=== PATIENT | female | born 1980 | race Native Hawaiian/Other Pacific Islander ===

== ENCOUNTER 2018-02-21 07:29 | Day surgery (SDC) | payer OTHER ==
[2018-02-21] MEDS ORDERED: Sodium Chloride 0.9% 1,000 ML IV ONE (07:48)
[2018-02-21] MEDS ORDERED: Sodium Chloride 0.9% 1,000 ML ONE (08:03)
--- NOTE | 2018-02-21 08:16 | C.PDOC ---
History Of Present Illness 37 year old female presents to the ED sent by Dr. Garcia for D&C procedure for possible miscarriage. Reports she is currently 11 weeks . Complains of minor spotting when she wipes, but denies any abdominal pain, n/v/d, fever, chills. Time Seen by Provider: 02/21/18 07:31 Chief Complaint (Nursing): Female Genitourinary History Per: Patient History/Exam Limitations: no limitations Onset/Duration Of Symptoms: Days Current Symptoms Are (Timing): Still Present Quality Of Discomfort: Cramping Abnormal Vaginal Bleeding: Yes Last Menstral Period: 11/30/2017 : 1 Past Medical History Reviewed: Historical Data, Nursing Documentation, Vital Signs Vital Signs: Last Vital Signs Temp 98 F 02/21/18 07:36 Pulse 73 02/21/18 07:36 Resp 18 02/21/18 07:36 BP 120/76 02/21/18 07:36 Pulse Ox 100 02/21/18 07:36 - Medical History PMH: No Chronic Diseases Surgical History: No Surg Hx Family History: States: No Known Family Hx - Social History Hx Alcohol Use: No Hx Substance Use: No - Immunization History Hx Tetanus Toxoid Vaccination: No Hx Influenza Vaccination: No Hx Pneumococcal Vaccination: No Review Of Systems Except As Marked, All Systems Reviewed And Found Negative. Constitutional: Negative for: Fever, Chills Gastrointestinal: Negative for: Nausea, Vomiting, Abdominal Pain, Diarrhea Genitourinary: Positive for: Vaginal Bleeding (spotting). Negative for: Dysuria, Hematuria Physical Exam - Physical Exam Appears: Non-toxic, No Acute Distress Skin: Warm, Dry, No Rash Head: Atraumatic, Normacephalic Eye(s): bilateral: Normal Inspection Oral Mucosa: Moist Neck: Normal ROM, Supple Chest: Symmetrical Respiratory: Normal Breath Sounds Gastrointestinal/Abdominal: Soft, No Tenderness Extremity: Normal ROM Neurological/Psych: Oriented x3, Normal Speech Gait: Steady ED Course And Treatment - Laboratory Results Result Diagrams: 02/21/18 08:17 02/21/18 08:17 Lab Interpretation: Normal Urine POC: Positive O2 Sat by Pulse Oximetry: 100 (RA) Pulse Ox Interpretation: Normal Progress Note: Treated with IVF NSS. 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 - Scribe Statement The provider has reviewed the documentation as recorded by the Scribe Sharmin Pedro All medical record entries made by the Raciel were at my direction and personally dictated by me. I have reviewed the chart and agree that the record accurately reflects my personal performance of the history, physical exam, medical decision making, and the department course for this patient. I have also personally directed, reviewed, and agree with the discharge instructions and disposition. Decision To Admit - Pt Status Changed To: Hospital Disposition Of: SDS- Endo,OR,Cath,IR - . Bed Request Type: Same Day Surgery Admitting Physician: Danyel Garcia Patient Diagnosis: Miscarriage
[2018-02-21 08:22] LABS: BASO # 0.1 K/uL (0.0-0.2); BASO % 0.9 % (0.0-2.0); EOS # 0.1 K/uL (0.0-0.7); EOS % 1.4 % (0.0-4.0); LYMPH # 2.6 K/uL (1.0-4.3); LYMPH % 31.6 % (20.0-40.0); MEAN CELL VOLUME 88.9 fL (81.0-99.0); MEAN CORPUSCULAR HEMOGLOBIN 30.2 pg (27.0-31.0); MEAN PLATELET VOLUME 7.4 fL (7.2-11.7); MONO # 0.5 K/uL (0.0-0.8); MONO % 6.4 % (0.0-10.0); NEUT % 59.7 % (50.0-75.0); RBC 4.3 Mil/uL (3.80-5.20); RED CELL DISTRIBUTION WIDTH 14.6 % (11.5-14.5); WHITE BLOOD COUNT 8.4 K/uL (4.8-10.8)
[2018-02-21 08:27] LABS: PROTHROMBIN TIME 11.3 SECONDS (9.7-12.2); SQUAMOUS EPITHIAL 10 /hpf (0-5); URINE BACTERIA FEW (<OCC); URINE BILIRUBIN NEGATIVE (NEGATIVE); URINE BLOOD 2+ (NEGATIVE); URINE CLARITY Hazy (Clear); URINE COLOR Yellow (YELLOW); URINE GLUCOSE (UA) NORMAL (Normal); URINE LEUKOCYTE ESTERASE TRACE Leu/uL (Negative); URINE PROTEIN NEGATIVE (NEGATIVE); URINE UROBILINOGEN NORMAL mg/dL (0.2-1.0)
--- NOTE | 2018-02-21 08:27 | CP.PCM.HP ---
History of Present Illness - History of Present Illness History of Present Illness: 37 y/o female at 11 weeks presents to ED for scheduled D&S by Dr Garcia. Vaginal U/S was done 3 days ago during visit and absent heart sound was found indicating demise. Patient experienced minimal va ginal spotting for one day. Patient denied associated symptoms of abd pain, N/V/D, fever, chills. Patient denied chest pain, palpitations, cough, headache, dysurea, PMH: PCOS PSH: denied FH: non contributory MEDS: PNV ALL: NKDA Present on Admission - Present on Admission Any Indicators Present on Admission: No Past Patient History - Infectious Disease Hx of Infectious Diseases: None - Past Social History Smoking Status: Never Smoked - GENITOURINARY/GYNECOLOGICAL Other/Comment: ovarian cysts - PSYCHIATRIC Hx Substance Use: No - ANESTHESIA Hx Anesthesia: No Meds Allergies/Adverse Reactions: Allergies Allergy/AdvReac Type Severity Reaction Status Date / Time No Known Allergies Allergy Verified 02/21/18 07:39 Physical Exam - Constitutional Appears: Well - Head Exam Head Exam: ATRAUMATIC, NORMAL INSPECTION, NORMOCEPHALIC - Eye Exam Eye Exam: EOMI, Normal appearance, PERRL Pupil Exam: NORMAL ACCOMODATION, PERRL - ENT Exam ENT Exam: Mucous Membranes Moist, Normal Exam - Neck Exam Neck exam: Positive for: Normal Inspection - Respiratory Exam Respiratory Exam: Clear to Auscultation Bilateral, NORMAL BREATHING PATTERN - Cardiovascular Exam Cardiovascular Exam: REGULAR RHYTHM - GI/Abdominal Exam GI & Abdominal Exam: Normal Bowel Sounds, Soft. absent: Tenderness - Extremities Exam Extremities exam: Positive for: normal inspection - Back Exam Back exam: NORMAL INSPECTION. absent: CVA tenderness (L), CVA tenderness (R) - Neurological Exam Neurological exam: Alert, CN II-XII Intact, Normal Gait, Oriented x3, Reflexes Normal - Psychiatric Exam Psychiatric exam: Normal Affect, Normal Mood - Skin Skin Exam: Dry, Intact, Normal Color, Warm Results - Vital Signs Recent Vital Signs: Last Vital Signs Temp 98 F 02/21/18 07:36 Pulse 73 02/21/18 07:36 Resp 18 02/21/18 07:36 BP 120/76 02/21/18 07:36 Pulse Ox 100 02/21/18 08:18 - Labs Result Diagrams: 02/21/18 08:17 02/21/18 08:17 Labs: Laboratory Results - last 24 hr 02/21/18 08:17 WBC 8.4 RBC 4.30 Hgb 13.0 Hct 38.2 MCV 88.9 MCH 30.2 MCHC 34.0 RDW 14.6 H Plt Count 354 MPV 7.4 Neut % (Auto) 59.7 Lymph % (Auto) 31.6 Robeson % (Auto) 6.4 Eos % (Auto) 1.4 Baso % (Auto) 0.9 Neut # (Auto) 5.0 Lymph # (Auto) 2.6 Robeson # (Auto) 0.5 Eos # (Auto) 0.1 Baso # (Auto) 0.1 Assessment & Plan - Assessment and Plan (Free Text) Assessment: 37 y/o female at 11 weeks presents to ED for scheduled D&S. Patient scheduled for D&C due to demise detected by U/S Plan: Vaginal U/S Quantitative BHCG Type and screen CBC, CMP, UA, coag, type Admit for D&C Case reviewed and discussed with attending Dr Garcia
[2018-02-21 08:29] LABS: HCG,QUALITATIVE URINE POSITIVE (NEGATIVE)
[2018-02-21 08:36] LABS: ALB/GLOB RATIO 1.3 (1.0-2.1); ALBUMIN 4.4 g/dL (3.5-5.0); ALT/SGPT 27 U/L (9-52); AST/SGOT 24 U/L (14-36); BLOOD UREA NITROGEN 10 mg/dL (7-17); CALCIUM 9.1 mg/dl (8.6-10.4); GFR NON-AFRICAN AMERICAN > 60
--- NOTE | 2018-02-21 09:52 | US ---
Date of service: 02/21/2018 PROCEDURE: OB Pelvic Ultrasound HISTORY: bleeding LMP: 11/30/2017 suggesting estimated gestational age of 11 weeks 6 days. COMPARISON: None available. FINDINGS: UTERUS: Gestational sac: Single intrauterine gestation is identified including pole with no yolk sac apparent or amniotic membrane at this time. Heart rate: No cardiac activity detected. age (Ultrasound estimated): 9 weeks 1 day based on crown-rump length mean. Sona-gestational hemorrhage: None. Date of delivery (Ultrasound estimated) : Not applicable. Uterus measures 11.2 x 6.6 x 9.5 cm. A posterior fundal fibroid is identified measure 1.7 x 1.4 x 1.7 cm, predominantly hyperechoic but of mixed echogenicity ultimately. It appears subserosal in location. Mean crown-rump length measurement 2.42 cm corresponding to 9 weeks 1 day. Gestational sac mean 3.36 cm correspond 8 weeks 3 days. CERVIX: Measures 3.8 cm. Long and closed. Trace fluid may be present at the upper endocervical canal. Small nabothian cysts is seen posteriorly and distally. RIGHT OVARY: Measures 9.0 x 4.8 x 7.8 cm cm. Right ovary is enlarged and is heterogeneous in echotexture containing with area of increased echogenicity measuring up to 3.2 by 1.3 cm suspicious for possible dermoid tumor. Intra-ovarian arterial blood flow is identified with no torsion pattern evident. Complex cystic change are not excluded but not proven. LEFT OVARY: Measures 4.4 x 3.4 x 4.2 cm cm. Left ovary is also enlarged though not quite like the right ovary with an echogenic component measuring 2.6 x 2.2 cm suspicious for an additional ovarian dermoid lesion. A small cyst is seen adjacent to this finding. Intra-ovarian arterial blood flow is identified on spectral analysis. No torsion pattern appreciated. FREE FLUID: None. OTHER FINDINGS: None. IMPRESSION: 1. Intrauterine gestation is identified with ultrasonic age of 9 weeks 1 day based on mean crown-rump length measurement. No cardiac activity is detectable, suggesting demise although the decidual reaction appears nonfocal. Serial beta HCG analysis is recommended as well as additional clinical correlation for follow ultrasonography is available as well. 2. Enlarged ovaries are identified bilaterally with areas of increased echogenicity suspicious for bilateral ovarian dermoid lesions. An adnexal ectopic gestation is not demonstrated definitively (particularly at the right side), and is unlikely. Clinically correlate nevertheless.
[2018-02-21] MEDS ORDERED: Propofol 10 mg/ml Inj (20 ML) ONE (10:21)
[2018-02-21] MEDS ORDERED: Midazolam 2 MG/2 ML VIAL ONE (10:22)
[2018-02-21] MEDS ORDERED: HYDROmorphone 0.5 mg/0.5 ml ISec IVP PRN (10:32)
[2018-02-21] MEDS ORDERED: ceFAZolin IV 1 gm in Dextrose 1 GM/50 ML BAG IVPB ONE (11:29)
[2018-02-21] MEDS ORDERED: Vasopressin 20 Units/ml Inj ONE (11:30)
[2018-02-21] MEDS ORDERED: Oxytocin 10 Units/ml Inj ONE (11:31)
[2018-02-21] MEDS ORDERED: Lactated Ringer's 500 ML IV ONE (12:33)
[2018-02-21 13:22] VITALS: RESP 18
[2018-02-21 14:44] VITALS: BP 120/70; PULSE 72; TEMP 98
[2018-02-21 15:04] VITALS: O2SAT 100
--- NOTE | 2018-02-22 04:02 | OP ---
PROCEDURE DATE: 02/21/2018 PREOPERATIVE DIAGNOSIS: A 37-year-old 1, para 0 at 11 weeks with demise. POSTOPERATIVE DIAGNOSIS: A 37-year-old 1, para 0 at 11 weeks with demise. SURGEON: Danyel Garcia MD PROP ATTENDANT: None. ANESTHESIA: General anesthesia. ANESTHESIOLOGIST: Neville Carnes MD PROCEDURE PERFORMED: Suction dilatation and curettage. DESCRIPTION OF PROCEDURE: After informed consent was obtained, the patient was brought to the operating room and placed on the table where general anesthesia was given. Once the anesthesia was given, the patient was prepped and draped in the normal sterile fashion. Examination revealed the uterus to be 8 weeks' size. No pelvic or adnexal masses. The anterior lip of the cervix was grasped with a tenaculum. Gentle dilation of the cervix was done, and then the suction was done. The products were sent to Pathology. Sharp curettage was done. Then, the products were sent to Pathology. Once again, the patient was put to Pathology. The patient tolerated the procedure well. Lap, sponge, and instrument counts were correct x2. Danyel Garcia MD
== END 2018-02-21 13:40 | disposition home or self-care (01) ==
LOC: C.ER 07:29 → C.9S 09:10 → C.SDS 09:10 → UNDOADMIN 09:10 → C.SDS 09:17 → UNDODISIN 13:40
PROVIDERS: ATTEND Obstetrics & Gynecology
DX: O02.1 Missed abortion (principal); Z3A.11 11 weeks gestation of pregnancy
CPT/HCPCS: 59820; 76805; 76817; 80053; 81001; 84702; 84703; 85025; 85610; 85730; 86850; 86900; 88233; 88262; 88305; 96360; 99285; J0690; J2250; J2704; J3010; J7030; J7120

== ENCOUNTER 2018-07-31 05:55 | Day surgery (SDC) | payer OTHER | END 2018-07-31 13:56 | disposition home or self-care (01) | LOC: C.SDS 05:55 | DX: N80.9 Endometriosis, unspecified (principal); N83.209 Unspecified ovarian cyst, unspecified side ==